=== PATIENT | female | born 1985 | race African-American/Black ===

== ENCOUNTER 2017-05-22 16:48 | Emergency (ER) | payer MEDICAID ==
[~2017-05-22] VITALS: Ht 162.6 cm; Wt 106.6 kg
[~2017-05-22 16:48] MED LIST: ADDERALL 5 MG TA5 M1 PO; AMITRIPTYLINE H25 M2; CENTRUM SILVER1 EAC4 PO; CIPRO500 MG PO; CLARITIN10 MG PO; FLAGYL500 MG PO; HYDROCODONE-AP1 EAC6 PO; METFORMIN HCL500 MG; NAPROSYN500 MG PO; PHENAZOPYRIDIN200 M2 PO; SINGULAIR 10 MG10 M1 PO; TRINATE TABLET1 TAB; VITAMIN D 5050000 I1 PO
[2017-05-22] MEDS ORDERED: MEDROLDOSEPACK PO (18:29)
[2017-05-22 18:40] VITALS: BP 114/77
== END 2017-05-22 18:43 | disposition home or self-care (01) ==
LOC: M.ERS 16:48
DX: S63.502A Unspecified sprain of left wrist, initial encounter (principal); Z98.890 Other specified postprocedural states; Z87.891 Personal history of nicotine dependence; Z88.8 Allergy status to other drugs, medicaments and biological substances; V89.2XXA Person injured in unspecified motor-vehicle accident, traffic, initial encounter; Y93.89 Activity, other specified; Y92.89 Other specified places as the place of occurrence of the external cause; Y99.8 Other external cause status

== ENCOUNTER 2017-06-19 14:06 | Emergency (ER) | payer OTHER, MEDICAID ==
[~2017-06-19] VITALS: Ht 162.6 cm; Wt 106.6 kg
[~2017-06-19 14:06] MED LIST changes: +MEDROLDOSEPACK PO
[2017-06-19 14:18] VITALS: BP 126/61
[2017-06-19] MEDS ORDERED: PERCOCET PO (14:21)
[2017-06-19] MEDS ORDERED: VITAMIN D1000 UNI1 PO (14:21)
[2017-06-19] MEDS ORDERED: TRAMADOL 50 MG50 MG PO (14:55)
== END 2017-06-19 15:02 | disposition home or self-care (01) ==
LOC: M.ERS 14:06
DX: G89.18 Other acute postprocedural pain (principal); Z46.89 Encounter for fitting and adjustment of other specified devices; Z98.890 Other specified postprocedural states; Z88.8 Allergy status to other drugs, medicaments and biological substances; Z87.891 Personal history of nicotine dependence

== ENCOUNTER 2017-07-17 21:19 | Emergency (ER) | payer OTHER, MEDICAID ==
[~2017-07-17] VITALS: Ht 162.6 cm; Wt 104.3 kg
[~2017-07-17 21:19] MED LIST changes: +PERCOCET PO; +TRAMADOL 50 MG50 MG PO; +VITAMIN D1000 UNI1 PO
[2017-07-17] MEDS ORDERED: FLEXERIL PO (22:24)
[2017-07-17 22:33] VITALS: BP 114/72
== END 2017-07-17 22:33 | disposition home or self-care (01) ==
LOC: M.ERS 21:19
DX: M79.672 Pain in left foot (principal); Z88.6 Allergy status to analgesic agent; Z87.891 Personal history of nicotine dependence